=== PATIENT | female | born 1995 | race Caucasian/White ===

== ENCOUNTER 2023-09-29 11:08 | Emergency (ER) | payer MEDICAID ==
[~2023-09-29] VITALS: Ht 167.6 cm; Wt 90.0 kg
[2023-09-29 11:19] VITALS: BP 139/74; PULSE 79; RESP 20; TEMP 98.7; O2SAT 98
[2023-09-29] MEDS ORDERED: IBUP-2029 MT (14:36)
[2023-09-29] MEDS ORDERED: AMOX-494 MT (14:36)
[2023-09-29] MEDS: IBUPROFEN 600MG TABLET PO ONE (14:52)
[2023-09-29] MEDS: AMOXICILLIN 500 MG CAPSULE PO ONE (14:52)
== END 2023-09-29 14:55 | disposition home or self-care (01) ==
LOC: ER 11:08
DX: K01.1 Impacted teeth (principal)
CPT/HCPCS: 99283